=== PATIENT | female | born 1950 | race African-American/Black ===

== ENCOUNTER 2019-08-28 10:11 | Inpatient (IN) | payer MEDICARE, MEDICAID ==
[~2019-08-28] VITALS: Ht 165.1 cm; Wt 93.0 kg
[~2019-08-28 10:11] MED LIST: AMLO10TA80 PO; ATEN-42 PO; ATOR10TA69 PO; CARV6.2548 PO; FURO20TA4 PO; GLIP10TA10; METF1000 PO; MIRT15TA6 PO; OMEP20CA5 PO; QUET200T PO; SEVE800T8 PO; TEMA15CA PO; TRAM50TA3 PO; TRIH5TAB3 PO
[2019-08-28] MEDS ORDERED: SUCCINYLCHOLINE CHLORIDE 200MG/10ML IV ONE (10:15)
[2019-08-28] MEDS ORDERED: PROPOFOL 10MG/ML 100ML 100 ML IV ONE (10:15)
[2019-08-28] MEDS ORDERED: FENTANYL CITRATE/PF 50MCG/ML 2ML VIAL IV ONE (10:15)
[2019-08-28] MEDS ORDERED: ETOMIDATE 2MG/ML 10ML VIAL IV ONE (10:15)
[2019-08-28 11:24] LABS: BASOPHILS % 0.6 % (0.0-2.0); EOSINOPHILS % 2.3 % (0.0-5.0); HEMATOCRIT. 41.6 % (36.0-48.0); HEMOGLOBIN. 13.6 g/dL (12.0-16.0); LYMPHOCYTES % 17.9 % (20.0-50.0); MEAN CORPUSCULAR HEMOGLOBIN 30.5 pg (28.0-32.0); MEAN CORPUSCULAR VOLUME 93.4 fL (81.0-99.0); MEAN PLATELET VOLUME 10.6 fl (7.4-10.4); MONOCYTES % 6.4 % (2.0-8.0); NEUTROPHILS % 72.8 % (40.0-76.0); PLATELET 169 x1000/uL (130-400); RED BLOOD CELL COUNT 4.45 mill/uL (4.2-5.4); RED CELL DISTRIBUTION WIDTH 14.3 % (11.6-14.6)
[2019-08-28 11:26] LABS: CLARITY URINE CLOUDY (CLEAR); COLOR URINE YELLOW (YELLOW); KETONES URINE NEGATIVE (NEGATIVE); LEUKOCYTE ESTERASE URINE 3+ (NEGATIVE); NITRITE URINE NEGATIVE (NEGATIVE); OCCULT BLOOD URINE NEGATIVE (NEGATIVE); PROTEIN URINE 1+ (NEGATIVE); SPECIFIC GRAVITY URINE 1.018 (1.005-1.030)
[2019-08-28 11:31] LABS: CHLORIDE 104 mEq/L (98-107)
[2019-08-28 11:35] LABS: ETHANOL BLOOD < 10 mg/dL
[2019-08-28 11:47] LABS: *AMPHETAMINES SCREEN URINE NEGATIVE (NEGATIVE); *BARBITURATES SCREEN URINE NEGATIVE (NEGATIVE); *BENZODIAZEPINES SCREEN URINE PRESUMTIVE POSITIVE (NEGATIVE); *COCAINE SCREEN URINE NEGATIVE (NEGATIVE); CANNABINOID URINE SCREEN NEGATIVE (NEGATIVE); METHADONE URINE SCREEN NEGATIVE (NEGATIVE)
[2019-08-28 11:48] LABS: OPIATES URINE SCREEN NEGATIVE (NEGATIVE); PHENCYCLIDINE URINE SCREEN NEGATIVE (NEGATIVE)
[2019-08-28] MEDS ORDERED: CEFTRIAXONE 1 G PREMIX 50 ML IV ONE (15:00)
[2019-08-28 15:40] LABS: BG BASE EXCESS 4.7 mmol/L (-2.0-2.0); BG CARBOXYHEMOGLOBIN 0.6 % (0.5-1.5); BG DEOXYHEMOGLOBIN 0.8 % (0.0-5.0); BG FRACTION INSPIRED OXYGEN 60; BG HCO3 ACT 28.3 mmol/L (22.0-26.0); BG METHEMOGLOBIN 0.1 % (0.0-1.5); BG OXYGEN SATURATION 99.2 % (92.0-98.5); BG OXYHEMOGLOBIN 98.5 % (94.0-97.0); BG PCO2 38.2 mmHg (35.0-45.0); BG PH 7.487 (7.350-7.450); BG PO2 163.9 mmHg (75.0-100.0); BG SAMPLE SITE RIGHT BRACHIAL; BG TIDAL VOLUME(mL) 500 mL; BG TOTAL HEMOGLOBIN 14.1 g/dL (12.0-18.0); BG VENT MODE VENT - A/C; BG VENT RATE 14 set
[2019-08-28] MEDS ORDERED: IOHEXOL-350 100 ML BOTTLE ONE (15:43)
[2019-08-28] MEDS ORDERED: IPRATROPIUM/ALBUTEROL 0.5-3(2.5)MG/3ML NEB HHN PRN (15:45)
[2019-08-28] MEDS ORDERED: IPRATROPIUM/ALBUTEROL 0.5-3(2.5)MG/3ML NEB NEB PRN (19:00)
[2019-08-28] MEDS ORDERED: IPRATROPIUM/ALBUTEROL 0.5-3(2.5)MG/3ML NEB HHN SCH (19:00)
[2019-08-28] MEDS ORDERED: ONDANSETRON HCL 4MG/2ML INJ IV PRN (19:00)
[2019-08-28] MEDS ORDERED: LACTULOSE 20G/30ML UDC GT PRN (19:00)
[2019-08-28] MEDS ORDERED: DEXTROSE 50% WATER 50ML SYRINGE IV PRN (19:00)
[2019-08-28] MEDS ORDERED: LEVETIRACETAM 500 MG in SODIUM CHLORIDE 0.9% 100 ML IV SCH (19:00)
[2019-08-28] MEDS: PROPOFOL 10MG/ML 100ML 100 ML IV PRN (19:17)
[2019-08-28] MEDS ORDERED: PIPERACILLIN/TAZ 3.375G PREMIX 50 ML IV SCH (21:30)
[2019-08-28] MEDS: IPRATROPIUM/ALBUTEROL 0.5-3(2.5)MG/3ML NEB HHN SCH (23:45)
[2019-08-29] VITALS (93 sets, daily range): BP systolic 49–153; BP diastolic 25–83
[2019-08-29] MEDS: DEXT 5%/0.45% NACL 1000ML 1,000 ML IV SCH ×2 (02:36→15:05)
[2019-08-29] MEDS: PROPOFOL 10MG/ML 100ML 100 ML IV PRN (02:36)
[2019-08-29] MEDS ORDERED: VANCOMYCIN 1250MG in DEXTROSE 5% WATER 250ML IV NR (03:00)
[2019-08-29] MEDS: IPRATROPIUM/ALBUTEROL 0.5-3(2.5)MG/3ML NEB HHN SCH ×6 (03:36→21:06)
[2019-08-29] MEDS ORDERED: LEVETIRACETAM 500 MG in SODIUM CHLORIDE 0.9% 100 ML IV SCH (04:00)
[2019-08-29] MEDS ORDERED: PIPERACILLIN/TAZOBACTAM 3.375 G in DEXT 5% WATER 100 ML IV SCH (04:00)
[2019-08-29] MEDS: BLOOD SUGAR DIAGNOSTIC STRIP TEST SCH ×4 (06:00→23:28)
[2019-08-29] MEDS: PIPERACILLIN/TAZOBACTAM 3.375 G in DEXT 5% WATER 100 ML IV SCH ×4 (07:12→23:49)
[2019-08-29] MEDS: INSULIN LISPRO 100 UNITS/ML SUBCUT SCH ×4 (07:28→23:51)
[2019-08-29] MEDS: PANTOPRAZOLE SODIUM 40 MG/VIAL IV SCH (08:25)
[2019-08-29] MEDS: ASPIRIN 81MG TABLET GT SCH (08:26)
[2019-08-29 08:30] LABS: BG BASE EXCESS 4.8 mmol/L (-2.0-2.0); BG CARBOXYHEMOGLOBIN 0.4 % (0.5-1.5); BG DEOXYHEMOGLOBIN 0.6 % (0.0-5.0); BG FRACTION INSPIRED OXYGEN 60; BG HCO3 ACT 28.3 mmol/L (22.0-26.0); BG METHEMOGLOBIN 0.1 % (0.0-1.5); BG OXYGEN SATURATION 99.4 % (92.0-98.5); BG OXYHEMOGLOBIN 98.9 % (94.0-97.0); BG PCO2 38.1 mmHg (35.0-45.0); BG PH 7.489 (7.350-7.450); BG PO2 229.1 mmHg (75.0-100.0); BG SAMPLE SITE LEFT RADIAL; BG TIDAL VOLUME(mL) 500 mL; BG TOTAL HEMOGLOBIN 13.6 g/dL (12.0-18.0); BG VENT MODE VENT - A/C; BG VENT RATE 14 set
[2019-08-29] MEDS ORDERED: FAMOTIDINE 20MG/2ML VIAL IV SCH (09:00)
[2019-08-29] MEDS ORDERED: SODIUM CHLORIDE 0.9% 500 ML IV ONE (11:00)
[2019-08-29] MEDS: ENOXAPARIN 40MG/0.4ML SYR SUBCUT SCH (11:40)
[2019-08-29] MEDS: ACETAMINOPHEN 650MG/20.3ML UDC GT PRN ×2 (15:05→20:22)
[2019-08-29] MEDS ORDERED: LIDOCAINE HCL 1% 20ML VIAL (Pyxis) INJ ONE (15:12)
[2019-08-29] MEDS ORDERED: SODIUM BICARBONATE 4% (2.4MEQ) 5ML VIAL IV ONE (15:12)
[2019-08-29] MEDS: VANCOMYCIN 1 G PREMIX 200 ML IV SCH (17:59)
[2019-08-29] MEDS: ATORVASTATIN CALCIUM 10MG TABLET GT SCH (20:51)
[2019-08-29] MEDS: LEVETIRACETAM 500MG PREMIX 100 ML IV SCH (20:52)
[2019-08-30] VITALS (84 sets, daily range): BP systolic 85–143; BP diastolic 36–75
[2019-08-30] MEDS: IPRATROPIUM/ALBUTEROL 0.5-3(2.5)MG/3ML NEB HHN SCH ×6 (00:40→16:12)
[2019-08-30] MEDS: DEXT 5%/0.45% NACL 1000ML 1,000 ML IV SCH ×2 (05:57→18:10)
[2019-08-30] MEDS: BLOOD SUGAR DIAGNOSTIC STRIP TEST SCH ×4 (05:57→23:27)
[2019-08-30] MEDS: PIPERACILLIN/TAZOBACTAM 3.375 G in DEXT 5% WATER 100 ML IV SCH ×4 (05:57→23:27)
[2019-08-30] MEDS: INSULIN LISPRO 100 UNITS/ML SUBCUT SCH ×4 (05:58→23:30)
[2019-08-30 08:34] LABS: BG BASE EXCESS 1.7 mmol/L (-2.0-2.0); BG DEOXYHEMOGLOBIN 1.9 % (0.0-5.0); BG HCO3 ACT 26.4 mmol/L (22.0-26.0); BG METHEMOGLOBIN 0.9 % (0.0-1.5); BG OXYGEN SATURATION 98.1 % (92.0-98.5); BG OXYHEMOGLOBIN 96.2 % (94.0-97.0); BG PCO2 42.1 mmHg (35.0-45.0); BG PH 7.416 (7.350-7.450); BG SAMPLE SITE RIGHT BRACHIAL; BG TIDAL VOLUME(mL) 500 mL; BG TOTAL HEMOGLOBIN 12.6 g/dL (12.0-18.0); BG VENT MODE VENT - A/C; BG VENT RATE 14 set
[2019-08-30] MEDS: PANTOPRAZOLE SODIUM 40 MG/VIAL IV SCH (08:54)
[2019-08-30] MEDS: LEVETIRACETAM 500MG PREMIX 100 ML IV SCH ×2 (08:54→20:01)
[2019-08-30] MEDS: ASPIRIN 81MG TABLET GT SCH (08:54)
[2019-08-30] MEDS: ENOXAPARIN 40MG/0.4ML SYR SUBCUT SCH (08:55)
[2019-08-30] MEDS: LORAZEPAM 2MG/ML CPJ IV PRN (08:55)
[2019-08-30] MEDS: VANCOMYCIN 1 G PREMIX 200 ML IV SCH (12:24)
[2019-08-30] MEDS: ACETAMINOPHEN 650MG/20.3ML UDC GT PRN (20:01)
[2019-08-30] MEDS: ATORVASTATIN CALCIUM 10MG TABLET GT SCH (20:02)
[2019-08-31] VITALS (81 sets, daily range): BP systolic 88–134; BP diastolic 39–80
[2019-08-31] MEDS: IPRATROPIUM/ALBUTEROL 0.5-3(2.5)MG/3ML NEB HHN SCH ×6 (00:55→20:24)
[2019-08-31] MEDS: PIPERACILLIN/TAZOBACTAM 3.375 G in DEXT 5% WATER 100 ML IV SCH ×4 (05:19→23:57)
[2019-08-31] MEDS: VANCOMYCIN 1 G PREMIX 200 ML IV SCH (05:20)
[2019-08-31] MEDS: BLOOD SUGAR DIAGNOSTIC STRIP TEST SCH ×4 (05:20→23:50)
[2019-08-31] MEDS: INSULIN LISPRO 100 UNITS/ML SUBCUT SCH ×4 (05:21→23:57)
[2019-08-31 05:42] LABS: HEMATOCRIT. 32.5 % (36.0-48.0); HEMOGLOBIN. 10.8 g/dL (12.0-16.0); MEAN CORPUSCULAR HEMOGLOBIN 30.5 pg (28.0-32.0); MEAN CORPUSCULAR VOLUME 92.2 fL (81.0-99.0); MEAN PLATELET VOLUME 11.5 fl (7.4-10.4); PLATELET 127 x1000/uL (130-400); RED BLOOD CELL COUNT 3.53 mill/uL (4.2-5.4); RED CELL DISTRIBUTION WIDTH 14.2 % (11.6-14.6)
[2019-08-31 06:58] LABS: INR 1.1; PARTIAL THROMBOPLASTIN TIME 32.5 sec (23.4-31.0); PROTHROMBIN TIME 11.5 sec (9.6-11.0)
[2019-08-31] MEDS: DEXT 5%/0.45% NACL 1000ML 1,000 ML IV SCH ×2 (08:57→20:01)
[2019-08-31] MEDS: LEVETIRACETAM 500MG PREMIX 100 ML IV SCH ×2 (08:58→20:05)
[2019-08-31] MEDS: PANTOPRAZOLE SODIUM 40 MG/VIAL IV SCH (08:58)
[2019-08-31] MEDS: ASPIRIN 81MG TABLET GT SCH (08:58)
[2019-08-31] MEDS: ENOXAPARIN 40MG/0.4ML SYR SUBCUT SCH (08:59)
[2019-08-31] MEDS ORDERED: POTASSIUM CHLORIDE 20MEQ/PACKET PO SCH (09:00)
[2019-08-31 12:14] LABS: PLATELET ESTIMATE SLIGHTLY DECREASED
[2019-08-31] MEDS ORDERED: POTASSIUM CHLORIDE 20MEQ/PACKET GT SCH (16:00)
[2019-08-31] MEDS: LORAZEPAM 2MG/ML CPJ IV PRN (16:41)
[2019-08-31] MEDS: ATORVASTATIN CALCIUM 10MG TABLET GT SCH (20:05)
[2019-08-31] MEDS: ACETAMINOPHEN 650MG/20.3ML UDC GT PRN (20:26)
[2019-09-01] VITALS (51 sets, daily range): BP systolic 79–149; BP diastolic 42–87
[2019-09-01] MEDS: IPRATROPIUM/ALBUTEROL 0.5-3(2.5)MG/3ML NEB HHN SCH ×6 (00:24→20:37)
[2019-09-01] MEDS: PIPERACILLIN/TAZOBACTAM 3.375 G in DEXT 5% WATER 100 ML IV SCH ×3 (05:37→18:25)
[2019-09-01] MEDS: INSULIN LISPRO 100 UNITS/ML SUBCUT SCH ×3 (05:38→18:33)
[2019-09-01] MEDS: BLOOD SUGAR DIAGNOSTIC STRIP TEST SCH ×3 (05:38→18:25)
[2019-09-01 06:01] LABS: HEMATOCRIT. 35.8 % (36.0-48.0); HEMOGLOBIN. 11.6 g/dL (12.0-16.0); MEAN CORPUSCULAR HEMOGLOBIN 29.9 pg (28.0-32.0); MEAN CORPUSCULAR VOLUME 92.6 fL (81.0-99.0); RED BLOOD CELL COUNT 3.87 mill/uL (4.2-5.4); RED CELL DISTRIBUTION WIDTH 14.8 % (11.6-14.6)
[2019-09-01 08:07] LABS: BG BASE EXCESS -0.3 mmol/L (-2.0-2.0); BG CARBOXYHEMOGLOBIN 0.2 % (0.5-1.5); BG DEOXYHEMOGLOBIN 0.9 % (0.0-5.0); BG FRACTION INSPIRED OXYGEN 50; BG HCO3 ACT 24.1 mmol/L (22.0-26.0); BG METHEMOGLOBIN 0.3 % (0.0-1.5); BG OXYHEMOGLOBIN 98.6 % (94.0-97.0); BG PCO2 38.7 mmHg (35.0-45.0); BG PH 7.412 (7.350-7.450); BG PO2 186.3 mmHg (75.0-100.0); BG SAMPLE SITE RIGHT RADIAL; BG TIDAL VOLUME(mL) 500 mL; BG TOTAL HEMOGLOBIN 11.3 g/dL (12.0-18.0); BG VENT MODE VENT - A/C; BG VENT RATE 14 set
[2019-09-01 08:15] LABS: PLATELET 143 x1000/uL (130-400); PLATELET ESTIMATE NORMAL
[2019-09-01 08:16] LABS: MEAN PLATELET VOLUME 11.5 fl (7.4-10.4)
[2019-09-01] MEDS: ASPIRIN 81MG TABLET GT SCH (08:55)
[2019-09-01] MEDS: PANTOPRAZOLE SODIUM 40 MG/VIAL IV SCH (08:55)
[2019-09-01] MEDS: ENOXAPARIN 40MG/0.4ML SYR SUBCUT SCH (09:00)
[2019-09-01] MEDS ORDERED: LEVETIRACETAM 500 MG in SODIUM CHLORIDE 0.9% 100 ML IV SCH (09:30)
[2019-09-01] MEDS: DEXT 5%/0.45% NACL 1000ML 1,000 ML IV SCH (11:18)
[2019-09-01 12:14] LABS: BG BASE EXCESS 0.5 mmol/L (-2.0-2.0); BG CARBOXYHEMOGLOBIN 0.7 % (0.5-1.5); BG DEOXYHEMOGLOBIN 1.8 % (0.0-5.0); BG FRACTION INSPIRED OXYGEN 35; BG HCO3 ACT 25.7 mmol/L (22.0-26.0); BG METHEMOGLOBIN 0.3 % (0.0-1.5); BG OXYGEN SATURATION 98.2 % (92.0-98.5); BG OXYHEMOGLOBIN 97.2 % (94.0-97.0); BG PCO2 43.3 mmHg (35.0-45.0); BG PH 7.391 (7.350-7.450); BG PO2 105.1 mmHg (75.0-100.0); BG PRESSURE SUPPORT 12; BG SAMPLE SITE RIGHT RADIAL; BG TIDAL VOLUME(mL) 500 mL; BG TOTAL HEMOGLOBIN 13.6 g/dL (12.0-18.0); BG VENT MODE VENT - SIMV; BG VENT RATE 10 set
[2019-09-01 12:43] LABS: PHOSPHORUS 1.4 mg/dL (2.5-4.9)
[2019-09-01] MEDS: LORAZEPAM 2MG/ML CPJ IV PRN (17:16)
[2019-09-01] MEDS: LEVETIRACETAM 500MG PREMIX 100 ML IV SCH (21:37)
[2019-09-01] MEDS: ATORVASTATIN CALCIUM 10MG TABLET GT SCH (21:37)
[2019-09-01] MEDS: PHENYLEPHRINE 40 MG in DEXT 5% WATER 246 ML IV PRN (21:38)
[2019-09-02] VITALS (75 sets, daily range): BP systolic 94–136; BP diastolic 44–67
[2019-09-02] MEDS: BLOOD SUGAR DIAGNOSTIC STRIP TEST SCH ×4 (00:30→17:50)
[2019-09-02] MEDS: IPRATROPIUM/ALBUTEROL 0.5-3(2.5)MG/3ML NEB HHN SCH ×5 (00:31→20:45)
[2019-09-02] MEDS: DEXT 5%/0.45% NACL 1000ML 1,000 ML IV SCH ×2 (00:36→17:50)
[2019-09-02] MEDS: PIPERACILLIN/TAZOBACTAM 3.375 G in DEXT 5% WATER 100 ML IV SCH ×2 (00:36→06:00)
[2019-09-02] MEDS: INSULIN LISPRO 100 UNITS/ML SUBCUT SCH ×4 (00:40→18:10)
[2019-09-02 08:50] LABS: HEMATOCRIT 30.6 % (36.0-48.0); HEMOGLOBIN 10.2 g/dL (12.0-16.0); MEAN CORPUSCULAR HEMOGLOBIN 30.3 pg (28.0-32.0); MEAN CORPUSCULAR VOLUME 91.4 fL (81.0-99.0); PLATELET 164 x1000/uL (130-400); RED BLOOD CELL COUNT 3.35 mill/uL (4.2-5.4); RED CELL DISTRIBUTION WIDTH 14.9 % (11.6-14.6)
[2019-09-02 08:57] LABS: CHLORIDE 108 mEq/L (98-107)
[2019-09-02 09:19] LABS: BG BASE EXCESS -1.5 mmol/L (-2.0-2.0); BG DEOXYHEMOGLOBIN 1.4 % (0.0-5.0); BG FRACTION INSPIRED OXYGEN 35; BG HCO3 ACT 23.3 mmol/L (22.0-26.0); BG METHEMOGLOBIN 0.1 % (0.0-1.5); BG OXYGEN SATURATION 98.6 % (92.0-98.5); BG OXYHEMOGLOBIN 98.5 % (94.0-97.0); BG PCO2 39.3 mmHg (35.0-45.0); BG PO2 127.1 mmHg (75.0-100.0); BG PRESSURE SUPPORT 12; BG SAMPLE SITE RIGHT RADIAL; BG TIDAL VOLUME(mL) 500 mL; BG TOTAL HEMOGLOBIN 10.6 g/dL (12.0-18.0); BG VENT MODE VENT - SIMV; BG VENT RATE 10 set
[2019-09-02] MEDS: PANTOPRAZOLE SODIUM 40 MG/VIAL IV SCH (09:34)
[2019-09-02] MEDS: LEVETIRACETAM 500MG PREMIX 100 ML IV SCH ×2 (09:34→20:56)
[2019-09-02] MEDS: ENOXAPARIN 40MG/0.4ML SYR SUBCUT SCH (09:35)
[2019-09-02] MEDS: ASPIRIN 81MG TABLET GT SCH (09:37)
[2019-09-02] MEDS ORDERED: METRONIDAZOLE 250MG TABLET GT SCH (10:30)
[2019-09-02] MEDS ORDERED: MEROPENEM 500 MG in SODIUM CHLORIDE 0.9% 50 ML IV SCH (10:30)
[2019-09-02] MEDS: MEROPENEM 1000MG in NORMAL SALINE 100ML IV SCH ×2 (11:41→20:56)
[2019-09-02] MEDS: VANCOMYCIN 1250MG in DEXTROSE 5% WATER 250ML IV SCH (11:41)
[2019-09-02] MEDS: METRONIDAZOLE 500MG TABLET PO SCH ×2 (15:36→20:56)
[2019-09-02] MEDS: PHENYLEPHRINE 40 MG in DEXT 5% WATER 246 ML IV PRN (16:27)
[2019-09-02] MEDS: ATORVASTATIN CALCIUM 10MG TABLET GT SCH (20:56)
[2019-09-03] VITALS (87 sets, daily range): BP systolic 95–131; BP diastolic 42–80
[2019-09-03] MEDS: BLOOD SUGAR DIAGNOSTIC STRIP TEST SCH ×4 (00:06→18:23)
[2019-09-03] MEDS: INSULIN LISPRO 100 UNITS/ML SUBCUT SCH ×4 (00:12→18:24)
[2019-09-03] MEDS: IPRATROPIUM/ALBUTEROL 0.5-3(2.5)MG/3ML NEB HHN SCH ×6 (00:39→20:27)
[2019-09-03 05:33] LABS: BASOPHILS % 0.9 % (0.0-2.0); HEMATOCRIT. 31.2 % (36.0-48.0); HEMOGLOBIN. 10.3 g/dL (12.0-16.0); LYMPHOCYTES % 13.7 % (20.0-50.0); MEAN CORPUSCULAR HEMOGLOBIN 30.4 pg (28.0-32.0); MEAN CORPUSCULAR VOLUME 92.1 fL (81.0-99.0); MEAN PLATELET VOLUME 11.3 fl (7.4-10.4); NEUTROPHILS % 64.4 % (40.0-76.0); PLATELET 175 x1000/uL (130-400); RED BLOOD CELL COUNT 3.39 mill/uL (4.2-5.4); RED CELL DISTRIBUTION WIDTH 14.6 % (11.6-14.6)
[2019-09-03 05:38] LABS: CHLORIDE 110 mEq/L (98-107)
[2019-09-03] MEDS: DEXT 5%/0.45% NACL 1000ML 1,000 ML IV SCH ×2 (06:23→21:00)
[2019-09-03] MEDS: METRONIDAZOLE 500MG TABLET PO SCH ×3 (06:23→21:56)
[2019-09-03 08:23] LABS: BG CARBOXYHEMOGLOBIN 0.1 % (0.5-1.5); BG FRACTION INSPIRED OXYGEN 30; BG HCO3 ACT 25.6 mmol/L (22.0-26.0); BG METHEMOGLOBIN 0.3 % (0.0-1.5); BG OXYHEMOGLOBIN 95.6 % (94.0-97.0); BG PCO2 40.8 mmHg (35.0-45.0); BG PH 7.415 (7.350-7.450); BG PO2 76.9 mmHg (75.0-100.0); BG PRESSURE SUPPORT 12; BG SAMPLE SITE RIGHT BRACHIAL; BG TIDAL VOLUME(mL) 500 mL; BG TOTAL HEMOGLOBIN 12.2 g/dL (12.0-18.0); BG VENT MODE VENT - SIMV; BG VENT RATE 10 set
[2019-09-03] MEDS: ENOXAPARIN 40MG/0.4ML SYR SUBCUT SCH (08:23)
[2019-09-03] MEDS: PANTOPRAZOLE SODIUM 40 MG/VIAL IV SCH (08:24)
[2019-09-03] MEDS: ASPIRIN 81MG TABLET GT SCH (08:24)
[2019-09-03] MEDS: LEVETIRACETAM 500MG PREMIX 100 ML IV SCH ×2 (08:26→21:02)
[2019-09-03] MEDS: TRIAMCINOLONE ACETONIDE 0.025% CREAM 15GM TOP SCH ×2 (08:31→21:57)
[2019-09-03] MEDS: MEROPENEM 1000MG in NORMAL SALINE 100ML IV SCH ×2 (09:22→21:56)
[2019-09-03 12:30] LABS: BG BASE EXCESS 1.8 mmol/L (-2.0-2.0); BG CARBOXYHEMOGLOBIN 0.3 % (0.5-1.5); BG DEOXYHEMOGLOBIN 1.8 % (0.0-5.0); BG FRACTION INSPIRED OXYGEN 40; BG HCO3 ACT 26.4 mmol/L (22.0-26.0); BG METHEMOGLOBIN 0.3 % (0.0-1.5); BG OXYGEN SATURATION 98.2 % (92.0-98.5); BG OXYHEMOGLOBIN 97.6 % (94.0-97.0); BG PCO2 41.2 mmHg (35.0-45.0); BG PH 7.424 (7.350-7.450); BG PO2 112.4 mmHg (75.0-100.0); BG PRESSURE SUPPORT 8; BG SAMPLE SITE RIGHT RADIAL; BG TOTAL HEMOGLOBIN 10.6 g/dL (12.0-18.0); BG VENT MODE VENT - CPAP
[2019-09-03] MEDS: ATORVASTATIN CALCIUM 10MG TABLET GT SCH (21:56)
[2019-09-04] VITALS (13 sets, daily range): BP systolic 93–136; BP diastolic 38–79
[2019-09-04] MEDS: IPRATROPIUM/ALBUTEROL 0.5-3(2.5)MG/3ML NEB HHN SCH ×6 (00:41→22:49)
[2019-09-04] MEDS: INSULIN LISPRO 100 UNITS/ML SUBCUT SCH ×4 (01:59→18:19)
[2019-09-04] MEDS: VANCOMYCIN 1250MG in DEXTROSE 5% WATER 250ML IV SCH (02:17)
[2019-09-04] MEDS: METRONIDAZOLE 500MG TABLET PO SCH ×3 (05:19→21:05)
[2019-09-04] MEDS: BLOOD SUGAR DIAGNOSTIC STRIP TEST SCH ×4 (05:20→17:32)
[2019-09-04] MEDS: DEXT 5%/0.45% NACL 1000ML 1,000 ML IV SCH ×2 (05:20→18:18)
[2019-09-04] MEDS: PANTOPRAZOLE SODIUM 40 MG/VIAL IV SCH (09:20)
[2019-09-04] MEDS: ENOXAPARIN 40MG/0.4ML SYR SUBCUT SCH (09:20)
[2019-09-04] MEDS: LEVETIRACETAM 500MG PREMIX 100 ML IV SCH ×2 (09:20→21:05)
[2019-09-04] MEDS: ASPIRIN 81MG TABLET GT SCH (09:20)
[2019-09-04] MEDS: TRIAMCINOLONE ACETONIDE 0.025% CREAM 15GM TOP SCH ×2 (09:21→21:05)
[2019-09-04 09:26] LABS: CHLORIDE 111 mEq/L (98-107)
[2019-09-04] MEDS: MEROPENEM 1000MG in NORMAL SALINE 100ML IV SCH ×2 (10:44→22:31)
[2019-09-04] MEDS: ATORVASTATIN CALCIUM 10MG TABLET GT SCH (21:05)
[2019-09-05] VITALS (12 sets, daily range): BP systolic 104–169; BP diastolic 55–69
[2019-09-05] MEDS: BLOOD SUGAR DIAGNOSTIC STRIP TEST SCH ×4 (00:27→18:26)
[2019-09-05] MEDS: INSULIN LISPRO 100 UNITS/ML SUBCUT SCH ×4 (00:27→18:00)
[2019-09-05] MEDS: IPRATROPIUM/ALBUTEROL 0.5-3(2.5)MG/3ML NEB HHN SCH ×5 (00:52→21:44)
[2019-09-05] MEDS: METRONIDAZOLE 500MG TABLET PO SCH ×3 (05:58→21:21)
[2019-09-05] MEDS: DEXT 5%/0.45% NACL 1000ML 1,000 ML IV SCH (09:07)
[2019-09-05] MEDS: PANTOPRAZOLE SODIUM 40 MG/VIAL IV SCH (09:08)
[2019-09-05] MEDS: ENOXAPARIN 40MG/0.4ML SYR SUBCUT SCH (09:08)
[2019-09-05] MEDS: MEROPENEM 1000MG in NORMAL SALINE 100ML IV SCH ×2 (09:09→21:20)
[2019-09-05] MEDS: ASPIRIN 81MG TABLET GT SCH (09:09)
[2019-09-05] MEDS: LACTOBACILLUS GG CAPSULE PO SCH (09:09)
[2019-09-05] MEDS: TRIAMCINOLONE ACETONIDE 0.025% CREAM 15GM TOP SCH ×2 (09:10→21:21)
[2019-09-05 10:41] LABS: EOSINOPHILS % 9.2 % (0.0-5.0); HEMATOCRIT. 24.3 % (36.0-48.0); LYMPHOCYTES % 24.5 % (20.0-50.0); MEAN CORPUSCULAR HEMOGLOBIN 30.3 pg (28.0-32.0); MEAN PLATELET VOLUME 9.4 fl (7.4-10.4); MONOCYTES % 9.7 % (2.0-8.0); NEUTROPHILS % 55.6 % (40.0-76.0); PLATELET 186 x1000/uL (130-400); RED BLOOD CELL COUNT 2.64 mill/uL (4.2-5.4); RED CELL DISTRIBUTION WIDTH 14.8 % (11.6-14.6)
[2019-09-05 10:45] LABS: CHLORIDE 114 mEq/L (98-107)
[2019-09-05] MEDS ORDERED: POTASSIUM CHLORIDE 20MEQ/PACKET PO NR (11:45)
[2019-09-05] MEDS: LEVETIRACETAM 500MG PREMIX 100 ML IV SCH ×2 (11:51→21:20)
[2019-09-05] MEDS: VANCOMYCIN 1250MG in DEXTROSE 5% WATER 250ML IV SCH (12:30)
[2019-09-05] MEDS: ATORVASTATIN CALCIUM 10MG TABLET GT SCH (21:21)
[2019-09-06] VITALS (12 sets, daily range): BP systolic 145–184; BP diastolic 62–82
[2019-09-06] MEDS: DEXT 5% WATER + KCL 20MEQ/L 1,000 ML IV SCH ×2 (00:42→09:02)
[2019-09-06] MEDS: BLOOD SUGAR DIAGNOSTIC STRIP TEST SCH ×4 (00:42→18:13)
[2019-09-06] MEDS: INSULIN LISPRO 100 UNITS/ML SUBCUT SCH ×5 (01:19→18:29)
[2019-09-06] MEDS: IPRATROPIUM/ALBUTEROL 0.5-3(2.5)MG/3ML NEB HHN SCH ×4 (02:16→20:55)
[2019-09-06] MEDS: METRONIDAZOLE 500MG TABLET PO SCH ×3 (07:24→22:00)
[2019-09-06 08:24] LABS: BASOPHILS % 1.2 % (0.0-2.0); EOSINOPHILS % 10.5 % (0.0-5.0); MEAN CORPUSCULAR HEMOGLOBIN 29.9 pg (28.0-32.0); MEAN CORPUSCULAR VOLUME 90.9 fL (81.0-99.0); MEAN PLATELET VOLUME 9.2 fl (7.4-10.4); MONOCYTES % 7.7 % (2.0-8.0); NEUTROPHILS % 60.6 % (40.0-76.0); PLATELET 290 x1000/uL (130-400); RED BLOOD CELL COUNT 3.74 mill/uL (4.2-5.4); RED CELL DISTRIBUTION WIDTH 14.7 % (11.6-14.6)
[2019-09-06 08:31] LABS: HEMOGLOBIN. 11.2 g/dL (12.0-16.0)
[2019-09-06] MEDS: LEVETIRACETAM 500MG PREMIX 100 ML IV SCH ×2 (08:40→21:00)
[2019-09-06] MEDS: MEROPENEM 1000MG in NORMAL SALINE 100ML IV SCH ×2 (08:40→21:00)
[2019-09-06] MEDS: PANTOPRAZOLE SODIUM 40 MG/VIAL IV SCH (08:41)
[2019-09-06] MEDS: ENOXAPARIN 40MG/0.4ML SYR SUBCUT SCH (08:41)
[2019-09-06] MEDS: LACTOBACILLUS GG CAPSULE PO SCH (08:41)
[2019-09-06] MEDS: TRIAMCINOLONE ACETONIDE 0.025% CREAM 15GM TOP SCH ×2 (08:41→21:00)
[2019-09-06] MEDS: ASPIRIN 81MG TABLET GT SCH (08:41)
[2019-09-06 09:42] LABS: CHLORIDE 108 mEq/L (98-107)
[2019-09-06] MEDS ORDERED: POTASSIUM PHOS,M-BASIC-D-BASIC 15 MMOL in DEXT 5% WATER 245 ML IV NR (16:00)
[2019-09-06] MEDS ORDERED: MAGNESIUM 1 G PREMIX 100 ML IV NR (16:00)
[2019-09-06] MEDS: DEXT 5%/0.45% NACL KCL 10MEQ/L 1,000 ML IV SCH (16:53)
[2019-09-06] MEDS: ATORVASTATIN CALCIUM 10MG TABLET GT SCH (21:00)
[2019-09-07] VITALS (12 sets, daily range): BP systolic 134–173; BP diastolic 54–79
[2019-09-07] MEDS: VANCOMYCIN 1250MG in DEXTROSE 5% WATER 250ML IV SCH ×2
[2019-09-07] MEDS: IPRATROPIUM/ALBUTEROL 0.5-3(2.5)MG/3ML NEB HHN SCH ×4 (01:57→21:32)
[2019-09-07] MEDS: DEXT 5%/0.45% NACL KCL 10MEQ/L 1,000 ML IV SCH ×2 (05:20→17:48)
[2019-09-07] MEDS: INSULIN LISPRO 100 UNITS/ML SUBCUT SCH ×4 (06:00→17:48)
[2019-09-07] MEDS: BLOOD SUGAR DIAGNOSTIC STRIP TEST SCH ×4 (06:00→17:48)
[2019-09-07] MEDS: METRONIDAZOLE 500MG TABLET PO SCH ×3 (06:59→20:31)
[2019-09-07] MEDS: ASPIRIN 81MG TABLET GT SCH (09:39)
[2019-09-07] MEDS: CLONIDINE 0.1MG TABLET GT PRN ×2 (09:39→16:15)
[2019-09-07] MEDS: PANTOPRAZOLE SODIUM 40 MG/VIAL IV SCH (09:39)
[2019-09-07] MEDS: ENOXAPARIN 40MG/0.4ML SYR SUBCUT SCH (09:39)
[2019-09-07] MEDS: LEVETIRACETAM 500MG PREMIX 100 ML IV SCH ×2 (09:40→20:32)
[2019-09-07] MEDS: TRIAMCINOLONE ACETONIDE 0.025% CREAM 15GM TOP SCH ×2 (09:40→20:31)
[2019-09-07] MEDS: LACTOBACILLUS GG CAPSULE PO SCH (09:44)
[2019-09-07] MEDS: MEROPENEM 1000MG in NORMAL SALINE 100ML IV SCH ×2 (10:34→21:47)
[2019-09-07] MEDS: ATORVASTATIN CALCIUM 10MG TABLET GT SCH (20:31)
[2019-09-08] VITALS (11 sets, daily range): BP systolic 143–166; BP diastolic 54–76
[2019-09-08] MEDS: BLOOD SUGAR DIAGNOSTIC STRIP TEST SCH ×4 (00:18→18:20)
[2019-09-08] MEDS: INSULIN LISPRO 100 UNITS/ML SUBCUT SCH ×4 (00:21→18:00)
[2019-09-08] MEDS: IPRATROPIUM/ALBUTEROL 0.5-3(2.5)MG/3ML NEB HHN SCH ×4 (02:00→21:01)
[2019-09-08] MEDS: METRONIDAZOLE 500MG TABLET PO SCH (05:07)
[2019-09-08] MEDS: ASPIRIN 81MG TABLET GT SCH (09:00)
[2019-09-08] MEDS: ENOXAPARIN 30MG/0.3ML SYR SUBCUT SCH ×2 (09:00→20:51)
[2019-09-08] MEDS: LACTOBACILLUS GG CAPSULE PO SCH (09:00)
[2019-09-08] MEDS: PANTOPRAZOLE SODIUM 40 MG/VIAL IV SCH (09:14)
[2019-09-08] MEDS: MEROPENEM 1000MG in NORMAL SALINE 100ML IV SCH (09:14)
[2019-09-08] MEDS: DEXT 5%/0.45% NACL KCL 10MEQ/L 1,000 ML IV SCH (09:14)
[2019-09-08] MEDS: LEVETIRACETAM 500MG PREMIX 100 ML IV SCH (09:14)
[2019-09-08] MEDS: TRIAMCINOLONE ACETONIDE 0.025% CREAM 15GM TOP SCH (09:15)
[2019-09-08] MEDS ORDERED: FENTANYL CITRATE/PF 50MCG/ML 2ML VIAL ONE (11:42)
[2019-09-08] MEDS ORDERED: MIDAZOLAM HCL 5 MG/5 ML VIAL ONE (11:42)
[2019-09-08] MEDS ORDERED: FENTANYL CITRATE/PF 50MCG/ML 2ML VIAL IV PRN (12:03)
[2019-09-08] MEDS ORDERED: MIDAZOLAM HCL 5 MG/5 ML VIAL IV PRN (12:04)
[2019-09-08] MEDS: ATORVASTATIN CALCIUM 10MG TABLET GT SCH (20:50)
[2019-09-08] MEDS: LEVETIRACETAM 500MG/5ML CUP GT SCH (20:50)
[2019-09-09] VITALS (9 sets, daily range): BP systolic 119–164; BP diastolic 46–79
[2019-09-09] MEDS: INSULIN LISPRO 100 UNITS/ML SUBCUT SCH ×3 (00:37→12:00)
[2019-09-09] MEDS: IPRATROPIUM/ALBUTEROL 0.5-3(2.5)MG/3ML NEB HHN SCH ×2 (01:16→09:51)
[2019-09-09] MEDS: BLOOD SUGAR DIAGNOSTIC STRIP TEST SCH ×3 (06:00→12:23)
[2019-09-09] MEDS: ENOXAPARIN 30MG/0.3ML SYR SUBCUT SCH (09:00)
[2019-09-09] MEDS: LACTOBACILLUS GG CAPSULE PO SCH (09:00)
[2019-09-09] MEDS: ASPIRIN 81MG TABLET GT SCH (09:00)
[2019-09-09] MEDS: LEVETIRACETAM 500MG/5ML CUP GT SCH (09:00)
[2019-09-09] MEDS: ACETAMINOPHEN 650MG/20.3ML UDC GT PRN (12:38)
[2019-09-09] MEDS ORDERED: METOPROLOL TARTRATE 50MG TABLET GT SCH (21:00)
== END 2019-09-09 17:18 | DRG 870 ==
LOC: ER 10:26 → MICUSO 15:08 → ENRESERV 23:19 → 5EST 09-04 02:30
PROVIDERS: ADMIT Internal Medicine; ATTEND Internal Medicine
PROC: 5A1955Z Respiratory Ventilation, Greater than 96 Consecutive Hours (ICD-10-PCS; principal; 2019-08-28)
PROC: 0BH17EZ Insertion of Endotracheal Airway into Trachea, Via Natural or Artificial Opening (ICD-10-PCS; 2019-08-28)
PROC: 05HY33Z Insertion of Infusion Device into Upper Vein, Percutaneous Approach (ICD-10-PCS; 2019-08-29)
PROC: B54NZZA Ultrasonography of Left Upper Extremity Veins, Guidance (ICD-10-PCS; 2019-08-29)
PROC: 0DB98ZX Excision of Duodenum, Via Natural or Artificial Opening Endoscopic, Diagnostic (ICD-10-PCS; 2019-09-08)
PROC: 0DB68ZX Excision of Stomach, Via Natural or Artificial Opening Endoscopic, Diagnostic (ICD-10-PCS; 2019-09-08)
PROC: 0D20XUZ Change Feeding Device in Upper Intestinal Tract, External Approach (ICD-10-PCS; 2019-09-08)
DX: A41.59 Other Gram-negative sepsis (principal); J96.00 Acute respiratory failure, unspecified whether with hypoxia or hypercapnia; G93.41 Metabolic encephalopathy; J69.0 Pneumonitis due to inhalation of food and vomit; N39.0 Urinary tract infection, site not specified; I50.32 Chronic diastolic (congestive) heart failure; I69.351 Hemiplegia and hemiparesis following cerebral infarction affecting right dominant side; K94.23 Gastrostomy malfunction; E11.9 Type 2 diabetes mellitus without complications; I11.0 Hypertensive heart disease with heart failure; E78.00 Pure hypercholesterolemia, unspecified; E78.5 Hyperlipidemia, unspecified; F32.9 Major depressive disorder, single episode, unspecified; R19.7 Diarrhea, unspecified; E87.6 Hypokalemia; F20.9 Schizophrenia, unspecified; G20 Parkinson's disease; L27.0 Generalized skin eruption due to drugs and medicaments taken internally; J44.9 Chronic obstructive pulmonary disease, unspecified; F02.80 Dementia in other diseases classified elsewhere, unspecified severity, without behavioral disturbance, psychotic disturbance, mood disturbance, and anxiety; B96.1 Klebsiella pneumoniae [K. pneumoniae] as the cause of diseases classified elsewhere; Y83.3 Surgical operation with formation of external stoma as the cause of abnormal reaction of the patient, or of later complication, without mention of misadventure at the time of the procedure; Y92.230 Patient room in hospital as the place of occurrence of the external cause; G40.409 Other generalized epilepsy and epileptic syndromes, not intractable, without status epilepticus; K29.70 Gastritis, unspecified, without bleeding; R13.10 Dysphagia, unspecified; Z74.01 Bed confinement status; Z79.899 Other long term (current) drug therapy
CPT/HCPCS: 36415; 36600; 70496; 70551; 71045; 71250; 76937; 80048; 80053; 80202; 80305; 80320; 81003; 82375; 82805; 82962; 83735; 84100; 84132; 84134; 84478; 85025; 85027; 87070; 87077; 87186; 88305; 88312; 88313; 93005; 93970; 93971; 96374; 99291; A6261; C1725; C9113; J0696; J1650; J1815; J1953; J2060; J2185; J2250; J2370; J2543; J2704; J3010; J3370; J3475; J3490; J7040; J7042; J7050; J7060; J7620; Q9967; G0480

== ENCOUNTER 2022-05-20 11:19 | Emergency (ER) | payer BC, MEDICAID ==
[~2022-05-20] VITALS: Ht 167.6 cm; Wt 87.0 kg
[~2022-05-20 11:19] MED LIST changes: +ACID1CAP2 GT; -AMLO10TA80 PO; +ASPI-1406 GT; -ATEN-42 PO; -CARV6.2548 PO; +DOCU250C14 GT; -FURO20TA4 PO; -GLIP10TA10; +KEPPSOL MT; -METF1000 PO; -MIRT15TA6 PO; -OMEP20CA5 PO; -QUET200T PO; -SEVE800T8 PO; -TEMA15CA PO; -TRAM50TA3 PO; -TRIH5TAB3 PO
[2022-05-20 11:51] LABS: BASOPHILS % 0.4 % (0.0-2.0); EOSINOPHILS % 2.3 % (0.0-5.0); HEMATOCRIT. 41.7 % (36.0-48.0); HEMOGLOBIN. 13.3 g/dL (12.0-16.0); LYMPHOCYTES % 16.8 % (20.0-50.0); MEAN CORPUSCULAR VOLUME 93.8 fL (81.0-99.0); MEAN PLATELET VOLUME 10.5 fl (7.4-10.4); MONOCYTES % 8.1 % (2.0-8.0); NEUTROPHILS % 72.4 % (40.0-76.0); PLATELET 205 x1000/uL (130-400); RED BLOOD CELL COUNT 4.45 mill/uL (4.2-5.4); RED CELL DISTRIBUTION WIDTH 15.5 % (11.6-14.6)
[2022-05-20 11:58] LABS: CHLORIDE 107 mEq/L (98-107)
[2022-05-20] MEDS: ONDANSETRON HCL 4MG/2ML INJ IV STA (12:10)
[2022-05-20] MEDS: SODIUM CHLORIDE 0.9% 1,000 ML IV ONE ×2 (12:10→14:16)
[2022-05-20 12:49] LABS: CLARITY URINE CLEAR (CLEAR); COLOR URINE YELLOW (YELLOW); KETONES URINE NEGATIVE (NEGATIVE); LEUKOCYTE ESTERASE URINE NEGATIVE (NEGATIVE); NITRITE URINE NEGATIVE (NEGATIVE); OCCULT BLOOD URINE NEGATIVE (NEGATIVE); PROTEIN URINE 1+ (NEGATIVE); SPECIFIC GRAVITY URINE 1.026 (1.005-1.030)
[2022-05-21 02:00] VITALS: BP 151/63
== END 2022-05-21 07:03 ==
LOC: ER 11:19
DX: E86.0 Dehydration (principal); J44.1 Chronic obstructive pulmonary disease with (acute) exacerbation; E11.9 Type 2 diabetes mellitus without complications; E78.00 Pure hypercholesterolemia, unspecified; I11.0 Hypertensive heart disease with heart failure; I50.9 Heart failure, unspecified; Z86.73 Personal history of transient ischemic attack (TIA), and cerebral infarction without residual deficits; Z86.59 Personal history of other mental and behavioral disorders; Z98.890 Other specified postprocedural states
CPT/HCPCS: 36415; 71045; 76700; 80053; 81003; 85025; 93005; 96361; 96374; 99285; J2405; J7030

== ENCOUNTER 2022-06-07 07:48 | Emergency (ER) | payer BC, MEDICAID ==
[~2022-06-07] VITALS: Ht 165.1 cm; Wt 75.0 kg
[2022-06-07 09:12] LABS: BASOPHILS % 0.6 % (0.0-2.0); EOSINOPHILS % 2.3 % (0.0-5.0); HEMATOCRIT. 44.3 % (36.0-48.0); HEMOGLOBIN. 14.1 g/dL (12.0-16.0); LYMPHOCYTES % 23.2 % (20.0-50.0); MEAN CORPUSCULAR HEMOGLOBIN 29.9 pg (28.0-32.0); MEAN CORPUSCULAR VOLUME 94.2 fL (81.0-99.0); MEAN PLATELET VOLUME 11.9 fl (7.4-10.4); MONOCYTES % 8.6 % (2.0-8.0); NEUTROPHILS % 65.3 % (40.0-76.0); PLATELET 193 x1000/uL (130-400); RED CELL DISTRIBUTION WIDTH 15.3 % (11.6-14.6)
[2022-06-07 09:31] LABS: CHLORIDE 105 mEq/L (98-107)
[2022-06-07 09:42] LABS: PROTHROMBIN TIME 10.8 sec (9.6-11.0)
[2022-06-07] MEDS ORDERED: LIDOCAINE HCL 2% JELLY 5ML ONE (15:17)
[2022-06-07] MEDS ORDERED: IOHEXOL-300 50 ML BOTTLE IV ONE (15:50)
[2022-06-07 17:27] VITALS: BP 138/68
== END 2022-06-07 17:46 | disposition home or self-care (01) ==
LOC: ER 07:48
DX: K94.23 Gastrostomy malfunction (principal); I25.10 Atherosclerotic heart disease of native coronary artery without angina pectoris; E11.9 Type 2 diabetes mellitus without complications; Z20.822 Contact with and (suspected) exposure to COVID-19; Z86.73 Personal history of transient ischemic attack (TIA), and cerebral infarction without residual deficits; Y83.3 Surgical operation with formation of external stoma as the cause of abnormal reaction of the patient, or of later complication, without mention of misadventure at the time of the procedure; Y92.128 Other place in nursing home as the place of occurrence of the external cause
CPT/HCPCS: 36415; 49450; 74176; 80053; 84484; 85025; 85610; 87426; 99285; C1769; C9803; Q9967